=== PATIENT | male | born 1955 | race Caucasian/White ===

== ENCOUNTER 2017-07-23 06:21 | Day surgery (SDC) | payer MEDICAID ==
[~2017-07-23] VITALS: Ht 172.7 cm; Wt 84.0 kg
[2017-07-23] MEDS ORDERED: SODIUM CHLORIDE 0.9% 1,000 ML IV ONE ×2 (06:51→07:00)
[2017-07-23] MEDS ORDERED: ATOR40TA28 PO (07:34)
[2017-07-23] MEDS ORDERED: ASPI-1182 PO (07:34)
[2017-07-23] MEDS ORDERED: FentaNYL CITRATE-PF 100 MCG/2 ML VIAL ONE (07:34)
[2017-07-23] MEDS ORDERED: MIDAZOLAM HCL 5 MG/ML VIAL ONE (07:34)
[2017-07-23] MEDS ORDERED: PROPOFOL 1% 20 ML VIAL IVP ONE (12:00)
[2017-07-23] MEDS ORDERED: LIDOCAINE HCL/PF 2% 5 ML VIAL INJ ONE (12:00)
== END 2017-07-23 10:25 | disposition home or self-care (01) ==
LOC: SURGERY 06:21
PROVIDERS: ATTEND Internal Medicine Gastroenterology
DX: K64.8 Other hemorrhoids (principal); I10 Essential (primary) hypertension; E78.5 Hyperlipidemia, unspecified; Z88.1 Allergy status to other antibiotic agents; Z88.8 Allergy status to other drugs, medicaments and biological substances; Z79.82 Long term (current) use of aspirin; Z98.890 Other specified postprocedural states; Z87.891 Personal history of nicotine dependence
CPT/HCPCS: 45378; J2704; J3490; J7030; J2250; J3010

== ENCOUNTER 2017-08-13 06:21 | Day surgery (SDC) | payer MEDICAID ==
[~2017-08-13] VITALS: Ht 175.3 cm; Wt 81.8 kg
[~2017-08-13 06:21] MED LIST: ASPI-1182 PO; ATOR40TA28 PO
[2017-08-13] MEDS ORDERED: PROPOFOL 1% 20 ML VIAL IVP ONE (06:22)
[2017-08-13] MEDS ORDERED: SODIUM CHLORIDE 0.9% 1,000 ML IV ONE ×2 (06:54→08:30)
[2017-08-13] MEDS ORDERED: OMEP10SU2 PO (09:01)
== END 2017-08-13 10:15 | disposition home or self-care (01) ==
LOC: SDS 06:21 → EDSTATUS 08:00 → SDS 10:15
PROVIDERS: ATTEND Internal Medicine Gastroenterology
DX: K26.3 Acute duodenal ulcer without hemorrhage or perforation (principal); K29.50 Unspecified chronic gastritis without bleeding; B96.81 Helicobacter pylori [H. pylori] as the cause of diseases classified elsewhere; I10 Essential (primary) hypertension; E78.00 Pure hypercholesterolemia, unspecified; Z79.82 Long term (current) use of aspirin; Z88.1 Allergy status to other antibiotic agents; Z98.890 Other specified postprocedural states
CPT/HCPCS: 43239; 88305; 88312; C1769; J2704; J7030